=== PATIENT | female | born 1950 | race African-American/Black ===

== ENCOUNTER 2020-05-07 17:54 | Emergency (ER) | payer BC, MEDICAID ==
[~2020-05-07] VITALS: Ht 160 cm; Wt 93.0 kg
[2020-05-07 21:34] LABS: Basophils # (auto) 0 10 ^3/uL (0-0.2); Basophils % (auto) 0.6 % (0.0-2.0); Eosinophils # (auto) 0.2 10 ^3/uL (0-0.8); Eosinophils % (auto) 2.8 % (0.0-7.0); Hematocrit 43.9 % (36.0-46.0); Hemoglobin 14.7 g/dL (12.2-16.2); Lymphocytes # (auto) 2.7 10 ^3/uL (0.4-5.4); Mean Corpuscular Hemoglobin 28.4 pg (28.0-32.0); Mean Corpuscular Hgb Conc. 33.5 g/dL (32.0-36.0); Mean Corpuscular Volume 84.8 fL (80.0-100.0); Monocytes # (auto) 0.5 10 ^3/uL (0-1.3); Monocytes % (auto) 6.7 % (0.0-12.0); Neutrophils # (auto) 4.2 10 ^3/uL (1.6-8.6); Neutrophils % (auto) 54.9 % (37.0-80.0); Nucleated Red Blood Cells % 0.1 %; Platelet Count (auto) 394 10^3/uL (140-450); Red Blood Cells 5.18 10^6/uL (4.0-5.20); Red Cell Distribution Width 14.1 % (11.8-14.3); White Blood Cell 7.7 10^3/uL (4.4-10.8)
[2020-05-07 21:41] LABS: Albumin 3.7 g/dL (3.4-5.0); Anion Gap 2 (5-15); Blood Urea Nitrogen 14 mg/dL (7-18); Calcium 8.8 mg/dL (8.5-10.1); Carbon Dioxide 29 mmol/L (21-32); Chloride 113 mmol/L (98-107); Glucose 100 mg/dL (74-106); Magnesium 2.6 mg/dL (1.6-2.6); Potassium 3.7 mmol/L (3.5-5.1); Sodium 144 mmol/L (136-145)
[2020-05-07 21:47] LABS: Alanine Aminotransferase 26 U/L (13-56); Alkaline Phosphatase 90 U/L (45-117); Aspartate Aminotransferase 13 U/L (15-37); BUN/Creatinine Ratio 16.3; Bilirubin, Total 0.2 mg/dL (0.2-1.0); GFR African American 84 mL/min; GFR Non-African American 70 mL/min; Total Protein 7.7 g/dL (6.4-8.2)
[2020-05-07 21:54] LABS: INR 0.96 (0.9-1.15); Partial Thromboplastin Time 26.7 sec (23.0-31.2)
[2020-05-08] MEDS ORDERED: ONDANSETRON HCL 4 MG/2 ML VIAL IV ONE ×2 (01:00→03:00)
[2020-05-08] MEDS ORDERED: HYDROmorphone HCL 2 MG/ML VL IV ONE ×2 (01:00→03:00)
[2020-05-08] MEDS ORDERED: diphenhdrAMINE HCL 50 MG/1 ML VL ONE (01:25)
[2020-05-08] MEDS ORDERED: diphenhdrAMINE HCL 50 MG/1 ML VL IV ONE (03:00)
[2020-05-08 04:33] VITALS: BP 105/68
== END 2020-05-08 04:28 | disposition home or self-care (01) ==
LOC: ER 17:54
DX: R07.89 Other chest pain (principal); K21.9 Gastro-esophageal reflux disease without esophagitis; M54.12 Radiculopathy, cervical region; M79.18 Myalgia, other site; Z88.5 Allergy status to narcotic agent; Z88.0 Allergy status to penicillin; Z88.8 Allergy status to other drugs, medicaments and biological substances
CPT/HCPCS: 36415; 71046; 72125; 80053; 83735; 84484; 85025; 85379; 85610; 85730; 93005; 96374; 96375; 96376; 99285; J1170; J1200; J2405

== ENCOUNTER 2020-10-14 03:06 | Inpatient (IN) | payer BC, MEDICAID ==
[~2020-10-14] VITALS: Ht 170.2 cm; Wt 77.0 kg
[2020-10-14 03:55] LABS: Basophils # (auto) 0.1 10 ^3/uL (0-0.2); Eosinophils # (auto) 0 10 ^3/uL (0-0.8); Eosinophils % (auto) 0.5 % (0.0-7.0); Hematocrit 43.7 % (36.0-46.0); Hemoglobin 14.7 g/dL (12.2-16.2); Lymphocytes # (auto) 1.7 10 ^3/uL (0.4-5.4); Lymphocytes % (auto) 18.4 % (10.0-50.0); Mean Corpuscular Hemoglobin 28.9 pg (28.0-32.0); Mean Corpuscular Hgb Conc. 33.5 g/dL (32.0-36.0); Mean Corpuscular Volume 86.2 fL (80.0-100.0); Monocytes # (auto) 0.4 10 ^3/uL (0-1.3); Monocytes % (auto) 4.6 % (0.0-12.0); Neutrophils # (auto) 6.8 10 ^3/uL (1.6-8.6); Neutrophils % (auto) 75.5 % (37.0-80.0); Nucleated Red Blood Cells % 0.1 %; Platelet Count (auto) 391 10^3/uL (140-450); Red Blood Cells 5.07 10^6/uL (4.0-5.20); Red Cell Distribution Width 14.8 % (11.8-14.3)
[2020-10-14 04:10] LABS: Albumin 3.7 g/dL (3.4-5.0); Amylase 74 U/L (25-115); Anion Gap 6 (5-15); Blood Urea Nitrogen 15 mg/dL (7-18); Calcium 9.4 mg/dL (8.5-10.1); Carbon Dioxide 27 mmol/L (21-32); Chloride 111 mmol/L (98-107); Glucose 119 mg/dL (74-106); Lipase 84 U/L (73-393); Magnesium 2.5 mg/dL (1.6-2.6); Potassium 4.1 mmol/L (3.5-5.1); Sodium 144 mmol/L (136-145)
[2020-10-14 04:17] LABS: Alanine Aminotransferase 20 U/L (13-56); Alkaline Phosphatase 88 U/L (45-117); Aspartate Aminotransferase 15 U/L (15-37); BUN/Creatinine Ratio 18.3; Bilirubin, Total 0.4 mg/dL (0.2-1.0); GFR African American 89 mL/min; GFR Non-African American 74 mL/min; Total Protein 7.9 g/dL (6.4-8.2)
[2020-10-14 04:19] LABS: INR 0.99 (0.9-1.15); Partial Thromboplastin Time 27.1 sec (23.0-31.2)
[2020-10-14] MEDS ORDERED: SODIUM CHLORIDE 0.9% 500 ML IV ONE (05:30)
[2020-10-14] MEDS ORDERED: ONDANSETRON HCL 4 MG/2 ML VIAL IV ONE (05:30)
[2020-10-14] MEDS ORDERED: SODIUM CHLORIDE 0.9% 1,000 ML IV ONE (05:30)
[2020-10-14] MEDS ORDERED: MORPHINE SULF INJ 2 MG/ML SYRINGE 1ML IV ONE (05:30)
[2020-10-14] MEDS ORDERED: MORPHINE SULF INJ 2 MG/ML SYRINGE 1ML IV PRN (07:00)
[2020-10-14] MEDS ORDERED: ONDANSETRON HCL 4 MG/2 ML VIAL IV PRN (07:00)
[2020-10-14] MEDS ORDERED: NITROGLYCERIN 0.4 MG SL TAB SL PRN (07:00)
[2020-10-14] MEDS ORDERED: SODIUM CHLORIDE 0.9% 1,000 ML IV SCH ×2 (07:00→13:35)
[2020-10-14] MEDS: KETOROLAC TROMETH 30 MG/ML 1ML VIAL IV PRN ×4 (07:45→21:17)
[2020-10-14] MEDS ORDERED: GASTROGRAFIN 120 ML SOL ONE (07:57)
[2020-10-14] MEDS: PANTOPRAZOLE 40 MG/10 ML VIAL INJ IV SCH (10:31)
[2020-10-14] MEDS ORDERED: DEXL60CA4 PO (15:05)
[2020-10-14] MEDS ORDERED: TOPI25TA84 PO (15:05)
[2020-10-14] MEDS ORDERED: GABA-339 PO (15:05)
[2020-10-14] MEDS ORDERED: ROSU1TAB13 PO (15:05)
[2020-10-14] MEDS ORDERED: TOPI100T68 PO (15:05)
[2020-10-14] MEDS ORDERED: FAMO40TA7 PO (15:05)
[2020-10-14] MEDS ORDERED: AMLO-489 PO (15:05)
[2020-10-14] MEDS ORDERED: ESCI-28 PO (15:05)
[2020-10-14 17:14] VITALS: BP 132/78
[2020-10-14 17:53] VITALS: BP 119/69
[2020-10-14] MEDS: traMADol HCL 50 MG TAB PO PRN (18:16)
[2020-10-14 22:00] VITALS: BP 166/82
[2020-10-14] MEDS: GABAPENTIN 300 MG CAP PO SCH (22:26)
[2020-10-15] MEDS: KETOROLAC TROMETH 30 MG/ML 1ML VIAL IV PRN ×2 (02:53→09:18)
[2020-10-15 05:00] VITALS: BP 116/69
[2020-10-15] MEDS: traMADol HCL 50 MG TAB PO PRN ×3 (06:20→13:11)
[2020-10-15 07:17] LABS: Basophils # (auto) 0 10 ^3/uL (0-0.2); Basophils % (auto) 0.4 % (0.0-2.0); Eosinophils # (auto) 0.4 10 ^3/uL (0-0.8); Eosinophils % (auto) 6.6 % (0.0-7.0); Hemoglobin 13.6 g/dL (12.2-16.2); Lymphocytes # (auto) 2.2 10 ^3/uL (0.4-5.4); Lymphocytes % (auto) 41.4 % (10.0-50.0); Mean Corpuscular Hgb Conc. 33.2 g/dL (32.0-36.0); Mean Corpuscular Volume 87.6 fL (80.0-100.0); Monocytes # (auto) 0.4 10 ^3/uL (0-1.3); Monocytes % (auto) 7.5 % (0.0-12.0); Neutrophils # (auto) 2.4 10 ^3/uL (1.6-8.6); Neutrophils % (auto) 44.1 % (37.0-80.0); Nucleated Red Blood Cells % 0.2 %; Platelet Count (auto) 298 10^3/uL (140-450); Red Blood Cells 4.69 10^6/uL (4.0-5.20); Red Cell Distribution Width 15.2 % (11.8-14.3); White Blood Cell 5.3 10^3/uL (4.4-10.8)
[2020-10-15 07:42] LABS: Potassium 3.8 mmol/L (3.5-5.1)
[2020-10-15 07:54] LABS: BUN/Creatinine Ratio 21.3; Calcium 8.7 mg/dL (8.5-10.1)
[2020-10-15] MEDS: PANTOPRAZOLE 40 MG/10 ML VIAL INJ IV SCH (09:17)
[2020-10-15] MEDS: GABAPENTIN 300 MG CAP PO SCH (09:17)
[2020-10-15 09:24] VITALS: BP 116/70
[2020-10-15] MEDS ORDERED: amLODIPine BESYLATE 5 MG TAB PO SCH (10:00)
[2020-10-15 13:13] VITALS: BP 128/71
[2020-10-15 13:53] VITALS: BP 116/70
== END 2020-10-15 14:33 | disposition home or self-care (01) | DRG 393 ==
LOC: EDUNIT# 03:06 → EDSEX 03:06 → EDBD 03:06 → ER 03:09 → TELE 03:10 → TELE-WESTW 10:54 → TELE-EAST 17:41
PROVIDERS: ADMIT Nurse Practitioner; ATTEND Hospitalist
DX: K43.6 Other and unspecified ventral hernia with obstruction, without gangrene (principal); U07.1 COVID-19; E86.0 Dehydration; I10 Essential (primary) hypertension; K21.9 Gastro-esophageal reflux disease without esophagitis; E11.9 Type 2 diabetes mellitus without complications; Z82.49 Family history of ischemic heart disease and other diseases of the circulatory system; Z83.3 Family history of diabetes mellitus; Z88.5 Allergy status to narcotic agent; Z88.0 Allergy status to penicillin; Z91.041 Radiographic dye allergy status
CPT/HCPCS: 36415; 71045; 74176; 74250; 80048; 80053; 82150; 83605; 83690; 83735; 83880; 84484; 85025; 85610; 85730; 87426; 93005; 96361; 96374; 96375; C9113; G0378; J1885; J2405

== ENCOUNTER 2021-01-06 06:08 | Inpatient (IN) | payer BC, MEDICAID ==
[~2021-01-06] VITALS: Ht 160 cm; Wt 92.8 kg
[~2021-01-06 06:08] MED LIST: AMLO-489 PO; DEXL60CA4 PO; ESCI-28 PO; FAMO40TA7 PO; GABA-339 PO; ROSU1TAB13 PO; TOPI100T68 PO; TOPI25TA84 PO
[2021-01-06] MEDS ORDERED: MORPHINE SULFATE 4 MG/ML SYR/VIAL IV ONE (07:00)
[2021-01-06] MEDS ORDERED: SODIUM CHLORIDE 0.9% 1,000 ML IV ONE (07:00)
[2021-01-06] MEDS ORDERED: ONDANSETRON HCL 4 MG/2 ML VIAL IV ONE (07:00)
[2021-01-06] MEDS ORDERED: KETOROLAC TROMETH 60MG/2ML VIAL IM ONE (07:30)
[2021-01-06 07:40] LABS: Basophils # (auto) 0 10 ^3/uL (0-0.2); Basophils % (auto) 0.6 % (0.0-2.0); Eosinophils # (auto) 0.2 10 ^3/uL (0-0.8); Eosinophils % (auto) 2.9 % (0.0-7.0); Hematocrit 46.1 % (36.0-46.0); Hemoglobin 15.6 g/dL (12.2-16.2); Lymphocytes # (auto) 1.9 10 ^3/uL (0.4-5.4); Lymphocytes % (auto) 26.1 % (10.0-50.0); Mean Corpuscular Hemoglobin 28.9 pg (28.0-32.0); Mean Corpuscular Hgb Conc. 33.9 g/dL (32.0-36.0); Mean Corpuscular Volume 85.3 fL (80.0-100.0); Monocytes # (auto) 0.5 10 ^3/uL (0-1.3); Monocytes % (auto) 6.9 % (0.0-12.0); Neutrophils # (auto) 4.7 10 ^3/uL (1.6-8.6); Neutrophils % (auto) 63.5 % (37.0-80.0); Nucleated Red Blood Cells % 0.1 %; Platelet Count (auto) 342 10^3/uL (140-450); Red Blood Cells 5.41 10^6/uL (4.0-5.20); Red Cell Distribution Width 14.4 % (11.8-14.3); White Blood Cell 7.4 10^3/uL (4.4-10.8)
[2021-01-06 08:07] LABS: Albumin 3.5 g/dL (3.4-5.0); Calcium 9.2 mg/dL (8.5-10.1); Potassium 3.6 mmol/L (3.5-5.1)
[2021-01-06 08:12] LABS: BUN/Creatinine Ratio 17.6; Bilirubin, Total 0.4 mg/dL (0.2-1.0); Total Protein 7.7 g/dL (6.4-8.2)
[2021-01-06] MEDS ORDERED: TAMSULOSIN HYDROCHLORIDE 0.4 MG CAP PO ONE (09:00)
[2021-01-06 10:30] LABS: Urine Bacteria FEW /hpf (None Seen); Urine Blood 2+ /uL (Negative); Urine Hyaline Cast FEW /lpf (0 - 2); Urine Mucus FEW (None Seen); Urine Specific Gravity 1.028 (1.001-1.035); Urine WBC 15 /hpf (0 - 5)
[2021-01-06] MEDS ORDERED: ACETAMINOPHEN 325 MG TAB PO PRN (10:30)
[2021-01-06] MEDS: KETOROLAC TROMETH 30 MG/ML 1ML VIAL IV PRN ×2 (11:02→17:08)
[2021-01-06] MEDS: SODIUM CHLORIDE 0.9% 1,000 ML IV SCH ×2 (11:03→20:30)
[2021-01-06] MEDS ORDERED: FURO40TA4 PO (12:07)
[2021-01-06] MEDS ORDERED: ALPR0.254 PO (12:07)
[2021-01-06] MEDS ORDERED: BIOT5TAB3 PO (12:08)
[2021-01-06] MEDS ORDERED: BENA5TAB5 PO (13:14)
[2021-01-06] MEDS ORDERED: ESCI10TA PO (13:22)
[2021-01-06] MEDS ORDERED: DIPH25CA6 PO (13:24)
[2021-01-06] MEDS ORDERED: NAPHSOL OP (13:24)
[2021-01-06] MEDS ORDERED: PSYL0.524 PO (13:25)
[2021-01-06] MEDS ORDERED: PNEUMOCOCCAL VACC POLYS 25 MCG/0.5 ML VIAL IM ONE (16:00)
[2021-01-06 17:00] VITALS: BP 151/98
[2021-01-06] MEDS: ONDANSETRON HCL 4 MG/2 ML VIAL IV PRN ×2 (18:08→22:11)
[2021-01-06 22:00] VITALS: BP 134/77
[2021-01-07] MEDS: KETOROLAC TROMETH 30 MG/ML 1ML VIAL IV PRN ×3 (00:06→14:06)
[2021-01-07 05:00] VITALS: BP 149/86
[2021-01-07] MEDS: SODIUM CHLORIDE 0.9% 1,000 ML IV SCH ×2 (06:30→16:30)
[2021-01-07 09:00] VITALS: BP 137/84
[2021-01-07] MEDS ORDERED: GASTROGRAFIN 120 ML SOL ONE (09:21)
[2021-01-07] MEDS ORDERED: HYDROmorphone HCL 2 MG/ML VL IV PRN (10:45)
[2021-01-07 13:00] VITALS: BP 126/81
[2021-01-07] MEDS ORDERED: KETOROLAC TROMETH 30 MG/ML 1ML VIAL IV PRN (14:30)
[2021-01-07 16:56] VITALS: BP 137/91
[2021-01-07] MEDS ORDERED: PNEUMOCOCCAL VACC POLYS 25 MCG/0.5 ML VIAL IM ONE (19:15)
== END 2021-01-07 20:10 | disposition home health service (06) | DRG 390 ==
LOC: ER 06:08 → EDBD 06:08 → OVERFLOW 10:21 → EAST 14:01
PROVIDERS: ADMIT Internal Medicine; ATTEND Internal Medicine
PROC: 0D9670Z Drainage of Stomach with Drainage Device, Via Natural or Artificial Opening (ICD-10-PCS; principal; 2021-01-06)
DX: K56.600 Partial intestinal obstruction, unspecified as to cause (principal); E78.5 Hyperlipidemia, unspecified; I10 Essential (primary) hypertension; Z20.822 Contact with and (suspected) exposure to COVID-19; E11.42 Type 2 diabetes mellitus with diabetic polyneuropathy; F32.9 Major depressive disorder, single episode, unspecified; Z83.3 Family history of diabetes mellitus; Z82.49 Family history of ischemic heart disease and other diseases of the circulatory system; Z90.710 Acquired absence of both cervix and uterus; Z88.8 Allergy status to other drugs, medicaments and biological substances; Z88.6 Allergy status to analgesic agent; Z88.0 Allergy status to penicillin; Z88.5 Allergy status to narcotic agent; Z82.61 Family history of arthritis; G62.9 Polyneuropathy, unspecified; K43.9 Ventral hernia without obstruction or gangrene
CPT/HCPCS: 36415; 71045; 74176; 74250; 80053; 81001; 84484; 85025; 87426; 93005; 96361; 96372; 96374; G0378; J1885; J2405

== ENCOUNTER 2021-01-30 09:13 | Emergency (ER) | payer BC, MEDICAID ==
[~2021-01-30] VITALS: Ht 160 cm; Wt 89.8 kg
[~2021-01-30 09:13] MED LIST changes: +ALPR0.254 PO; -AMLO-489 PO; +BENA5TAB5 PO; +BIOT5TAB3 PO; +DIPH25CA6 PO; -ESCI-28 PO; +ESCI10TA PO; -FAMO40TA7 PO; +FURO40TA4 PO; +NAPHSOL OP; +PSYL0.524 PO
[2021-01-30] MEDS ORDERED: IOHEXOL 300 MG/ML 100ML BOTTLE IJ ONE (10:43)
[2021-01-30] MEDS ORDERED: SODIUM CHLORIDE 0.9% 1,000 ML IV ONE (10:45)
[2021-01-30] MEDS ORDERED: HYDROmorphone HCL 2 MG/ML VL IV ONE (10:45)
[2021-01-30] MEDS ORDERED: METOCLOPRAMIDE HCL 5MG/ml INJ 2ml VIAL IV ONE (10:45)
[2021-01-30 10:56] LABS: Basophils # (auto) 0.1 10 ^3/uL (0-0.2); Basophils % (auto) 0.7 % (0.0-2.0); Eosinophils # (auto) 0.2 10 ^3/uL (0-0.8); Eosinophils % (auto) 2.1 % (0.0-7.0); Hematocrit 44.2 % (36.0-46.0); Hemoglobin 15.1 g/dL (12.2-16.2); Lymphocytes # (auto) 2.4 10 ^3/uL (0.4-5.4); Lymphocytes % (auto) 31.2 % (10.0-50.0); Mean Corpuscular Hemoglobin 29.1 pg (28.0-32.0); Mean Corpuscular Hgb Conc. 34.1 g/dL (32.0-36.0); Mean Corpuscular Volume 85.5 fL (80.0-100.0); Monocytes # (auto) 0.5 10 ^3/uL (0-1.3); Monocytes % (auto) 6.4 % (0.0-12.0); Neutrophils # (auto) 4.6 10 ^3/uL (1.6-8.6); Neutrophils % (auto) 59.6 % (37.0-80.0); Red Blood Cells 5.18 10^6/uL (4.0-5.20); Red Cell Distribution Width 14.1 % (11.8-14.3); White Blood Cell 7.8 10^3/uL (4.4-10.8)
[2021-01-30 11:01] VITALS: BP 129/88
[2021-01-30 11:11] LABS: Albumin 3.7 g/dL (3.4-5.0); Calcium 9.1 mg/dL (8.5-10.1); INR 0.98 (0.9-1.15); Magnesium 2.5 mg/dL (1.6-2.6); Partial Thromboplastin Time 26.3 sec (23.0-31.2); Potassium 4.3 mmol/L (3.5-5.1)
[2021-01-30 11:15] LABS: Bilirubin, Total 0.8 mg/dL (0.2-1.0); Total Protein 7.8 g/dL (6.4-8.2)
== END 2021-01-30 15:07 | disposition home or self-care (01) ==
LOC: EDSEX 09:13 → EDBD 09:13 → ER 09:13
DX: K43.9 Ventral hernia without obstruction or gangrene (principal); K21.9 Gastro-esophageal reflux disease without esophagitis; E66.9 Obesity, unspecified; Z68.35 Body mass index [BMI] 35.0-35.9, adult; I10 Essential (primary) hypertension; E11.9 Type 2 diabetes mellitus without complications; Z79.899 Other long term (current) drug therapy; Z88.0 Allergy status to penicillin; Z88.5 Allergy status to narcotic agent; Z88.8 Allergy status to other drugs, medicaments and biological substances
CPT/HCPCS: 36415; 71045; 74176; 80053; 83690; 83735; 85025; 85049; 85610; 85730; 93005; 96361; 96374; 96375; 99285; J1170; J2765; J7030